=== PATIENT | female | born 1980 | race Caucasian/White ===

== ENCOUNTER 2023-05-01 11:50 | Emergency (ER) | payer SELFPAY ==
[2023-05-01 11:54] VITALS: BP 116/78
[2023-05-01 12:09] LABS: % Basophils 0.3 % (0-2); % Immature Granulocytes 0.5 % (0-0.5); % Lymphocytes 8.5 % (20.5-51.1); % Monocytes 5.8 % (1.7-9.3); % Neutrophils 84.9 % (42.2-75.2); Absolute Lymphocytes 0.7 10^3/uL (1.2-3.4); Absolute Monocytes 0.5 10^3/uL (0.1-0.6); Absolute Neutrophils 6.6 10^3/uL (1.4-6.5); Hematocrit 40.2 % (37.0-47.0); Mean Corp Hgb Conc. 34.8 g/dL (33.0-37.0); Mean Corpuscular Hgb 31.2 pg (27.0-31.0); Mean Corpuscular Volume 89.5 fL (81.0-99.0); Mean Platelet Volume 9.4 fL (7.4-10.4); Nucleated Red Blood Cells % 0 %; Platelet Count 233 10^3/uL (130-400); Red Blood Cell Count 4.49 10^6/uL (4.20-5.40); Red Cell Dist. Width 12.3 % (11.5-14.5); White Blood Cell Count 7.7 10^3/uL (4.8-10.8)
[2023-05-01 12:25] LABS: HCG, Serum Qualitative Screen Negative
[2023-05-01 12:27] LABS: ALT (SGPT) 23 U/L (0-35); AST (SGOT) 29 U/L (14-36); Albumin 4.4 g/dl (3.5-5.0); Alkaline Phosphatase 90 U/L (38-126); Blood Urea Nitrogen 4 mg/dl (7-17); Calcium 9.4 mg/dl (8.4-10.2); Carbon Dioxide 27 mmol/L (22-30); Chloride 106 mmol/L (98-107); Glucose 110 mg/dl (70-99); Lipase 89 U/L (23-300); Potassium 3.9 mmol/L (3.5-5.1); Sodium 137 mmol/L (135-145); Total Bilirubin 0.8 mg/dl (0.2-1.3); Total Protein 7.3 g/dl (6.3-8.2); eGFR > 60.00
--- NOTE | 2023-05-01 13:14 | EDRN ---
Katherine Rojas in room w/ pt at this time
--- NOTE | 2023-05-01 13:21 | ED.GENMED ---
History of Present Illness
General
Chief Complaint: Abdominal Pain
Source: patient
Exam Limitations: none
Time Seen by Provider: 05/01/23 13:02
Travel History
Have you had any contact with someone who has COVID-19?: No
Do you have any symptoms of coronavirus? Fever > 100 degrees, chills, cough, shortness of breath, sore throat, loss of taste or smell, muscle aches, or headache?: No
History of Present Illness
History of Present Illness:
42 year old female presents with one weeks worth of right upper abdominal pain with 2 episodes of vomiting. No fever cough or shortness of breath. Pain is not pleuritic. Pain is made worse with motion. She is moving her bowels normally and
urinating normally. No prior abdominal surgical history. Pain is fairly constant not made worse with eating. No other complaints at this time
Phy Exam
Physical Exam
Physical Exam:
General: Well-appearing female no acute respiratory distress
HEENT: Normocephalic atraumatic sclera anicteric
Heart: Regular rate and rhythm no murmurs
Lungs: Clear to auscultation bilaterally no wheezing
Abdomen: Slightly tender to the right upper quadrant negative Jha sign no costovertebral angle tenderness right lower quadrant nontender
Musculoskeletal exam: Slightly reproducible pain to the right anterior inferior chest wall. No step-off or deformity
Course
Orders/Labs/Results
Orders:
Orders
05/01/23 11:57
Test Result ONCE
05/01/23 12:04
Complete Blood Count/With Diff Urgent
Comprehensive Metabolic Panel Urgent
HCG, Serum Qualitative Screen Urgent
Lipase Urgent
05/01/23 13:20
US Abdomen Complete/Upper Urgent
Comment:
Reason For Exam: RUQ pain
05/01/23 13:21
CR Chest - 2 Views Urgent
Comment:
Reason For Exam: right lower rib pain
05/01/23 13:39
Urinalysis Reflex To Culture Urgent
Date Specimen was Collected: 05/01/23
Time Specimen was Collected: 13:38
Urine Microscopic Reflex Cult Urgent
Abnormal Lab Results
05/01/23 05/01/23
12:04 13:39
MCH 31.2 H pg
(27.0-31.0)
Absolute Neuts (auto) 6.6 H 10^3/uL
(1.4-6.5)
Absolute Lymphs (auto) 0.7 L 10^3/uL
(1.2-3.4)
Neutrophils % 84.9 H %
(42.2-75.2)
Lymphocytes % 8.5 L %
(20.5-51.1)
BUN 4 L mg/dl
(7-17)
Glucose 110 H mg/dl
(70-99)
Urine Ketones 2+ A
(Negative)
Urine Bilirubin 1+ A
(Negative)
Urine Urobilinogen 2+ A
(Neg - 1+)
Leukocyte Esterase Rfl Trace A
(Negative)
Urine Bacteria (Reflex) Few A
(Negative)
Urine Albumin (Reflex) 1+ A
(Neg - Trace)
05/01/23 12:04
05/01/23 12:04
Vital Signs
Initial and Last Documented VS:
Initial Vital Signs
Temp Pulse Resp BP Pulse Ox
97.6 F 115 16 116/78 99
05/01/23 11:54 05/01/23 11:54 05/01/23 11:54 05/01/23 11:54 05/01/23 11:54
Last Documented Vital Signs
Temp Pulse Resp BP Pulse Ox
97.6 F 95 16 107/60 97
05/01/23 11:54 05/01/23 13:32 05/01/23 13:32 05/01/23 13:32 05/01/23 13:32
MDM/Problems Addressed
Differential Diagnosis Includes:
Right upper quadrant/right chest wall pain. Not pleuritic no PE risk factors stable vital signs do not suspect PE. No fever or cough. Question possible biliary colic versus chest wall strain. Will also check urinalysis for UTI
*Critical Care Note
Total Time (30-74mins, 75-104mins- exclusive of procedures): Not Applicable
Update Note
Update Note:
Ultrasound negative. Chest x-ray clear. Labs reviewed without significant finding. Patient's pain is made worse with motion and to the touch. I suspect chest wall strain. Recommend ibuprofen or Tylenol. Stable for discharge
ED Attending Note
-
Portions of this chart may have been created with voice recognition software.� Occasional wrong word or��sound alike� substitutions may have occurred due to the inherent limitations of voice recognition software.
Discharge Plan
Departure
Patient Disposition: Home (Routine Discharge)
Date of Disposition: 05/01/23
Time of Disposition: 16:28
Patient with high blood pressure during this ER visit?: No
Discharge Problem:
Chest wall pain
Instructions: Costochondritis (DC)
Referrals:
UNKNOWN - PT DOES,NOT KNOW [Family Provider] -
Activity Restrictions/Additional Instructions:
Use ibuprofen or Tylenol for pain. Avoid heavy lifting or twisting. Return if worse otherwise follow-up with family doctor
Interventions
Interventions:
*Risk Screen - Suicide Last Done: 05/01/23 11:54
*General Assessment Last Done: 05/01/23 11:54
*Neglect/Abuse Screening Last Done: 05/01/23 11:54
ED- Fall Risk Assessment Last Done: 05/01/23 13:32
*ED COVID-19 Vaccine History Last Done: 05/01/23 13:32
EM-Okwwxb-Kxxywabwun Assessment Last Done: 05/01/23 13:32
[2023-05-01 13:32] VITALS: BP 107/60; BMI 25.0
--- NOTE | 2023-05-01 13:45 | EDRN ---
Pt to RP via w/c w/ Lizzy CARDENAS. I sent report to Dianna MOORE via TT and it was received.
[2023-05-01 13:48] LABS: Urine Albumin 1+ (Neg - Trace); Urine Bilirubin 1+ (Negative); Urine Character Clear (Clear); Urine Color Yellow; Urine Glucose Negative (Negative); Urine Ketone 2+ (Negative); Urine Leukocyte Trace (Negative); Urine Nitrite Negative (Negative); Urine Occult Blood Negative (Negative); Urine Urobilinogen 2+ (Neg - 1+)
[2023-05-01 14:00] LABS: Urine Bacteria Few (Negative); Urine Red Blood Cell 0-2 /HPF (0-2); Urine Squamous Cell >30 /LPF (Few)
[2023-05-01 16:42] VITALS: BP 124/76
== END 2023-05-01 16:43 | disposition home or self-care (01) ==
LOC: EMR 11:50
PROVIDERS: Physician Assistant; Student in an Organized Health Care Education/Training Program; EMERGENCY PHYSICIAN Emergency Medicine
DX: R07.89 Other chest pain (principal); R10.11 Right upper quadrant pain
CPT/HCPCS: 99284; 71046; 76700; 80053; 81003; 81015; 83690; 84703; 85025